=== PATIENT | female | born 1990 | race Caucasian/White ===

== ENCOUNTER → 2016-07-04 | Outpatient (CLI) | payer BC ==
[~2016-07-04] VITALS: Ht 168.9 cm; Wt 121.8 kg
[~2016-07-04] MED LIST: AMITIZA 8MCG8 MCG PO; ARMOUR THYROID90 MG PO; PHENTERMINE15 MG PO; SYNTHROID0.05 MG/TA PO; WELLBUTRIN 75MG75 MG PO; [UNRECOGNIZED DRUG - OTHER]
[2016-07-04 11:12] VITALS: BP 110/78; PULSE 96
[2016-07-04 11:34] VITALS: BP 110/78; PULSE 96
== END ==
LOC: LIGHT 06-13 14:26
DX: E16.1 Other hypoglycemia (principal); E03.9 Hypothyroidism, unspecified; E66.01 Morbid (severe) obesity due to excess calories; Z68.41 Body mass index [BMI] 40.0-44.9, adult

== ENCOUNTER → 2016-08-08 | Outpatient (CLI) | payer BC ==
[~2016-08-08] VITALS: Ht 168.9 cm; Wt 122.0 kg
[2016-08-08 12:00] VITALS: BP 110/64; PULSE 80
== END ==
LOC: LIGHT 12:00
DX: E16.1 Other hypoglycemia (principal); E03.8 Other specified hypothyroidism; E66.01 Morbid (severe) obesity due to excess calories; Z68.41 Body mass index [BMI] 40.0-44.9, adult